=== PATIENT | male | born 1990 | race Caucasian/White ===

== ENCOUNTER 2025-02-07 19:30 | Emergency (ER) | payer OTHER ==
[2025-02-07 19:42] VITALS: BP 134/94; PULSE 121; RESP 20; TEMP 98.7; BMI 31.0
[2025-02-07] MEDS ORDERED: DIPHTH,PERTUSS(ACELL),TET 0.5 ML DISP.SYRIN IM ONE ×2 (21:17→21:27)
[2025-02-07] MEDS: DIPHTH,PERTUSS(ACELL),TET 0.5 ML DISP.SYRIN IM ONE (21:28)
== END 2025-02-07 21:45 | disposition home or self-care (01) ==
LOC: JER 19:30
PROC: 3E0234Z Introduction of Serum, Toxoid and Vaccine into Muscle, Percutaneous Approach (ICD-10-PCS; principal; 2025-02-07)
DX: R21 Rash and other nonspecific skin eruption (principal); Z23 Encounter for immunization
CPT/HCPCS: 90471; 90715; 99284-25

== ENCOUNTER 2025-03-03 20:15 | Inpatient (IN) | payer OTHER ==
[2025-03-03 20:20] VITALS: BMI 30.2
[2025-03-03 21:52] LABS: ABSOLUTE IMMATURE GRANULOCYTES 0.02 x10^3/uL (0.0-0.031); BASOPHILS # 0.09 x10^3/uL (0.01-0.08); EOSINOPHIL % 3.7 % (0.8-7.0); HEMATOCRIT 44.5 % (40.1-51.0); HEMOGLOBIN 14.9 g/dL (13.7-17.5); MCHC 33.5 g/dl (32.3-36.5); MEAN CELL VOLUME 98.7 fl (79.0-92.2); MEAN PLT VOLUME 9.7 fl (9.4-12.4); MONOCYTE # 1.06 x10^3/uL (0.30-0.82); PLATELET COUNT 217 x10^3/uL (163-337); RDW 11.9 % (12.0-15.6)
[2025-03-03 22:09] LABS: POTASSIUM 3.6 mmol/L (3.5-5.1)
[2025-03-03 22:20] LABS: ALBUMIN 3.7 g/dl (3.4-5.0); BILIRUBIN,TOTAL 0.4 mg/dL (0.2-1); BLOOD UREA NITROGEN 9.8 mg/dL (7-18); CALCIUM 9.9 mg/dL (8.5-10.1); CREATININE 1.2 mg/dL (0.55-1.3); MAGNESIUM 1.5 mg/dL (1.8-2.4); TOT PROT 8.3 g/dl (6.4-8.2)
[2025-03-03] MEDS ORDERED: VANCOMYCIN 1 GM PREMIX (F) 1 GM/200 ML BAG ONE (22:46)
[2025-03-03] MEDS ORDERED: PIPERACILLIN/TAZOB 4.5 GM 4.5 GM/100 ML BAG IVPB ONE (22:58)
[2025-03-03] MEDS: PIPERACILLIN/TAZOB 4.5 GM 4.5 GM in DEXTROSE 5%-WATER 100 ML IVPB ONE (23:06)
[2025-03-03 23:34] LABS: HIV INTERPRETATION NEGATIVE (NEGATIVE)
[2025-03-03 23:35] LABS: HCV DIAGNOSTIC IN-HOUSE W/RFLX NON-REACTIVE (NONREACTIVE)
[2025-03-03] MEDS ORDERED: chlordiazePOXIDE HCL 25 MG CAPSULE PO PRN (23:44)
[2025-03-03] MEDS ORDERED: LORazepam 2 MG/ML SDV VIAL IVPUSH PRN ×2 (23:50→23:52)
[2025-03-04] MEDS ORDERED: chlordiazePOXIDE HCL 25 MG CAPSULE ONE (00:14)
[2025-03-04] MEDS: chlordiazePOXIDE HCL 25 MG CAPSULE PO SCH (00:28)
[2025-03-04] MEDS: VANCOMYCIN 1,000 MG in DEXTROSE 5%-WATER - 250 ML IVPB ONE (00:46)
[2025-03-04] MEDS: MAGNESIUM 2GM/50ML STERILE WATER IVPB IVPB ONE (03:18)
[2025-03-04] MEDS ORDERED: THIAMINE HCL 200 MG/2 ML VIAL IVPB SCH (06:00)
[2025-03-04 08:09] LABS: HEMATOCRIT 38.6 % (40.1-51.0); MCHC 33.7 g/dl (32.3-36.5); PLATELET COUNT 177 x10^3/uL (163-337); RDW 11.9 % (12.0-15.6)
[2025-03-04 08:23] LABS: POTASSIUM 3.5 mmol/L (3.5-5.1)
[2025-03-04 08:28] LABS: CALCIUM 9.1 mg/dL (8.5-10.1)
[2025-03-04 08:29] LABS: ALBUMIN 3.2 g/dl (3.4-5.0); BLOOD UREA NITROGEN 8.3 mg/dL (7-18); MAGNESIUM 1.7 mg/dL (1.8-2.4)
[2025-03-04 08:32] LABS: PHOSPHOROUS 2.8 mg/dL (2.5-4.9)
[2025-03-04 08:34] LABS: BILIRUBIN,TOTAL 0.5 mg/dL (0.2-1)
[2025-03-04] MEDS: THIAMINE 100 MG TABLET PO SCH (09:08)
[2025-03-04] MEDS: DOXYCYCLINE HYCLATE 100 MG CAPSULE PO SCH (09:08)
[2025-03-04] MEDS: CEFTRIAXONE 1 G/50 ML PREMIX 50 ML IVPB SCH (09:08)
[2025-03-04] MEDS: FOLIC ACID 1 MG TABLET (FP) PO SCH (09:08)
[2025-03-04 10:29] LABS: ERYTHROCYTE SEDIMENTATION RATE 7 mm/hr (0-10)
[2025-03-04] MEDS ORDERED: LORazepam 1 MG TABLET PO PRN (12:12)
[2025-03-04] MEDS: LORATADINE 10 MG TABLET PO SCH (12:27)
[2025-03-04] MEDS: LORazepam 1 MG TABLET PO SCH (12:28)
[2025-03-05] MEDS ORDERED: chlordiazePOXIDE HCL 25 MG CAPSULE PO SCH (05:00)
[2025-03-05] MEDS: MAGNESIUM SULFATE IN WATER 2 GM/50 ML IVPB IVPB ONE (15:29)
[2025-03-05] MEDS: TRIAMCINOLONE ACET 0.1% CREAM 15 GM TUBE TP SCH ×2 (16:01→21:05)
[2025-03-05] MEDS: predniSONE 20 MG TABLET (UD) PO SCH (16:57)
[2025-03-05] MEDS: DICLOXACILLIN SODIUM 250 MG CAPSULE PO SCH (21:04)
[2025-03-05 21:14] VITALS: RESP 18
[2025-03-06] MEDS ORDERED: chlordiazePOXIDE HCL 10 MG CAPSULE PO PRN
[2025-03-06] MEDS: LORazepam 1 MG TABLET PO SCH (04:46)
[2025-03-06] MEDS ORDERED: chlordiazePOXIDE HCL 10 MG CAPSULE PO SCH (05:00)
[2025-03-06 08:55] LABS: HEMATOCRIT 38.2 % (40.1-51.0); HEMOGLOBIN 12.9 g/dL (13.7-17.5); MCHC 33.8 g/dl (32.3-36.5); MEAN CELL VOLUME 97.7 fl (79.0-92.2); MEAN PLT VOLUME 10.6 fl (9.4-12.4); PLATELET COUNT 187 x10^3/uL (163-337); RDW 11.3 % (12.0-15.6)
[2025-03-06 09:17] LABS: POTASSIUM 3.7 mmol/L (3.5-5.1)
[2025-03-06 09:51] LABS: ALBUMIN 3.2 g/dl (3.4-5.0); BLOOD UREA NITROGEN 17.4 mg/dL (7-18)
[2025-03-06 09:55] LABS: CREATININE 0.9 mg/dL (0.55-1.3); PHOSPHOROUS 4.9 mg/dL (2.5-4.9)
[2025-03-06 09:56] LABS: BILIRUBIN,TOTAL 0.6 mg/dL (0.2-1); TOT PROT 7.2 g/dl (6.4-8.2)
[2025-03-06 09:59] LABS: MAGNESIUM 1.9 mg/dL (1.8-2.4)
[2025-03-07] MEDS ORDERED: LORazepam 0.5 MG TABLET PO PRN
[2025-03-07] MEDS: LORazepam 0.5 MG TABLET PO SCH (04:43)
[2025-03-07] MEDS ORDERED: chlordiazePOXIDE HCL 10 MG CAPSULE PO SCH (05:00)
[2025-03-07 08:32] LABS: HEMATOCRIT 37.5 % (40.1-51.0); HEMOGLOBIN 12.8 g/dL (13.7-17.5); MCHC 34.1 g/dl (32.3-36.5); MEAN CELL VOLUME 97.9 fl (79.0-92.2); MEAN PLT VOLUME 10.9 fl (9.4-12.4); PLATELET COUNT 207 x10^3/uL (163-337); RDW 11.2 % (12.0-15.6)
[2025-03-07 08:52] LABS: POTASSIUM 3.3 mmol/L (3.5-5.1)
[2025-03-07 08:57] LABS: ALBUMIN 3.4 g/dl (3.4-5.0); BLOOD UREA NITROGEN 15.5 mg/dL (7-18); CALCIUM 8.7 mg/dL (8.5-10.1); MAGNESIUM 1.8 mg/dL (1.8-2.4)
[2025-03-07 09:01] LABS: BILIRUBIN,TOTAL 0.6 mg/dL (0.2-1); PHOSPHOROUS 4.3 mg/dL (2.5-4.9); TOT PROT 7.5 g/dl (6.4-8.2)
[2025-03-07] MEDS: POTASSIUM CHLORIDE ORAL LIQUID 20 MEQ/15 ML PO ONE (10:19)
[2025-03-07 10:45] VITALS: BP 127/85; PULSE 109; TEMP 97.2
[2025-03-08] MEDS ORDERED: LORazepam 0.5 MG TABLET PO ONE (05:00)
[2025-03-08] MEDS ORDERED: chlordiazePOXIDE HCL 10 MG CAPSULE PO ONE (05:00)
[2025-03-08 18:07] LABS: C-ANCA <1:20 titer (Neg:<1:20)
== END 2025-03-07 11:27 | disposition home or self-care (01) | DRG 383 ==
LOC: JERFT 20:15 → JERBED 22:22 → J6S 03-04 02:22
PROVIDERS: ADMIT Internal Medicine; ATTEND Internal Medicine
DX: L01.00 Impetigo, unspecified (principal); F10.230 Alcohol dependence with withdrawal, uncomplicated; L29.9 Pruritus, unspecified; E83.42 Hypomagnesemia; R79.89 Other specified abnormal findings of blood chemistry; D64.9 Anemia, unspecified
CPT/HCPCS: 36415; 80053; 82785; 83520; 83735; 84100; 85025; 85027; 85651; 86038; 86140; 86256; 86780; 86803; 87040; 87070; 87081; 87186; 87205; 87389; 93005; 93010; 99285-25

== ENCOUNTER 2025-04-04 19:30 | Inpatient (IN) | payer OTHER ==
[2025-04-04 19:45] VITALS: RESP 18; BMI 31.4
[2025-04-04 20:53] LABS: ABSOLUTE IMMATURE GRANULOCYTES 0.04 x10^3/uL (0.0-0.031); BASOPHILS # 0.04 x10^3/uL (0.01-0.08); HEMATOCRIT 34.6 % (40.1-51.0); MCHC 34.7 g/dl (32.3-36.5); MEAN CELL VOLUME 95.3 fl (79.0-92.2); MEAN PLT VOLUME 9.8 fl (9.4-12.4); MONOCYTE # 0.24 x10^3/uL (0.30-0.82); MONOCYTE % 2.6 % (5.3-12.2); PLATELET COUNT 275 x10^3/uL (163-337); RDW 11.9 % (12.0-15.6)
[2025-04-04 21:02] LABS: INR 1.15 (0.83-1.09); PROTHROMBIN TIME (PATIENT) 12.6 SEC (9.7-13.0)
[2025-04-04 21:05] LABS: ACTIVATED PTT 30.6 SECONDS (25.2-36.5)
[2025-04-04 21:14] LABS: POTASSIUM 4.7 mmol/L (3.5-5.1)
[2025-04-04 21:16] LABS: CALCIUM 9.1 mg/dL (8.5-10.1)
[2025-04-04 21:17] LABS: ALBUMIN 3.7 g/dl (3.4-5.0)
[2025-04-04 21:21] LABS: CREATININE 0.9 mg/dL (0.55-1.3)
[2025-04-04 21:22] LABS: BILIRUBIN,TOTAL 0.4 mg/dL (0.2-1); TOT PROT 8.4 g/dl (6.4-8.2)
[2025-04-04 21:38] LABS: ERYTHROCYTE SEDIMENTATION RATE 78 mm/hr (0-10)
[2025-04-04 22:11] LABS: HCV DIAGNOSTIC IN-HOUSE W/RFLX NON-REACTIVE (NONREACTIVE); HIV INTERPRETATION NEGATIVE (NEGATIVE)
[2025-04-04] MEDS ORDERED: PIPERACILLIN/TAZOB 3.375 GM 3.375 GM/50 ML BAG IVPB ONE (23:00)
[2025-04-04] MEDS: PIPERACILLIN/TAZOB 3.375 GM 3.375 GM in DEXTROSE 5%-WATER - 50 ML IVPB ONE (23:04)
[2025-04-04] MEDS ORDERED: VANCOMYCIN 1 GM PREMIX (F) 1 GM/200 ML BAG ONE (23:16)
[2025-04-04] MEDS: VANCOMYCIN 1,000 MG in DEXTROSE 5%-WATER - 250 ML IVPB ONE (23:22)
[2025-04-05] MEDS ORDERED: chlordiazePOXIDE HCL 25 MG CAPSULE ONE (00:58)
[2025-04-05] MEDS: chlordiazePOXIDE HCL 25 MG CAPSULE PO ONE (01:01)
[2025-04-05] MEDS: ACETAMINOPHEN 1000 MG/100 ML BAG IVPB PRN (05:14)
[2025-04-05 09:35] LABS: ABSOLUTE IMMATURE GRANULOCYTES 0.07 x10^3/uL (0.0-0.031); BASOPHILS # 0.09 x10^3/uL (0.01-0.08); EOSINOPHIL % 0.1 % (0.8-7.0); EOSINOPHILS # 0.01 x10^3/uL (0.04-0.54); HEMATOCRIT 31.7 % (40.1-51.0); HEMOGLOBIN 10.9 g/dL (13.7-17.5); MCHC 34.4 g/dl (32.3-36.5); MEAN CELL VOLUME 96.1 fl (79.0-92.2); MEAN PLT VOLUME 10.1 fl (9.4-12.4); MONOCYTE % 18.6 % (5.3-12.2); PLATELET COUNT 264 x10^3/uL (163-337); RDW 12.1 % (12.0-15.6)
[2025-04-05 10:46] LABS: POTASSIUM 3.8 mmol/L (3.5-5.1)
[2025-04-05 10:48] LABS: BLOOD UREA NITROGEN 13.7 mg/dL (7-18); CALCIUM 8.8 mg/dL (8.5-10.1); MAGNESIUM 1.7 mg/dL (1.8-2.4)
[2025-04-05 10:52] LABS: BILIRUBIN,TOTAL 0.7 mg/dL (0.2-1); PHOSPHOROUS 2.9 mg/dL (2.5-4.9)
[2025-04-05] MEDS: ENOXAPARIN NA (PORCINE) 40 MG/0.4 ML DISP.SYRIN SQ SCH (10:55)
[2025-04-05] MEDS: TRIAMCINOLONE ACET 0.1% CREAM 15 GM TUBE TP SCH (10:56)
[2025-04-05] MEDS: LORATADINE 10 MG TABLET PO SCH (10:56)
[2025-04-05 15:15] VITALS: BP 131/90; PULSE 91; TEMP 98.2
== END 2025-04-05 15:40 | disposition home or self-care (01) | DRG 816 ==
LOC: JER 19:30 → JERBED 04-05 00:20 → OBSVTOIN 04-05 02:06 → J6S 04-05 04:15
PROVIDERS: ADMIT Student in an Organized Health Care Education/Training Program; ATTEND Internal Medicine
DX: T63.481A Toxic effect of venom of other arthropod, accidental (unintentional), initial encounter (principal); L98.9 Disorder of the skin and subcutaneous tissue, unspecified; D64.9 Anemia, unspecified; R79.89 Other specified abnormal findings of blood chemistry; R21 Rash and other nonspecific skin eruption; Y92.89 Other specified places as the place of occurrence of the external cause; F10.90 Alcohol use, unspecified, uncomplicated
CPT/HCPCS: 36415; 80053; 83735; 84100; 85025; 85610; 85651; 85730; 86140; 86803; 86850; 86900; 86901; 87389; 93005; 93010; 93970-TC; 99285-25; G0378; J0131

== ENCOUNTER 2025-05-12 13:09 | Emergency (ER) | payer OTHER ==
[2025-05-12 13:33] VITALS: BMI 30.1
[2025-05-12] MEDS ORDERED: diazePAM CARPU-JECT 10 MG/2 ML DISP.SYRIN ONE (13:40)
[2025-05-12] MEDS: diazePAM CARPU-JECT 10 MG/2 ML DISP.SYRIN IVPUSH ONE (13:49)
[2025-05-12 14:14] LABS: ABSOLUTE IMMATURE GRANULOCYTES 0.02 x10^3/uL (0.0-0.031); EOSINOPHILS # 0.02 x10^3/uL (0.04-0.54); HEMOGLOBIN 13.1 g/dL (13.7-17.5)
[2025-05-12 14:16] LABS: BASOPHILS # 0.07 x10^3/uL (0.01-0.08); EOSINOPHIL % 0.3 % (0.8-7.0); HEMATOCRIT 39.5 % (40.1-51.0); MCHC 33.2 g/dl (32.3-36.5); MEAN CELL VOLUME 98.5 fl (79.0-92.2); MEAN PLT VOLUME 10.6 fl (9.4-12.4); MONOCYTE # 1.28 x10^3/uL (0.30-0.82); MONOCYTE % 16.1 % (5.3-12.2); PLATELET COUNT 124 x10^3/uL (163-337); RDW 13.6 % (12.0-15.6)
[2025-05-12 14:22] LABS: POTASSIUM 3.2 mmol/L (3.5-5.1)
[2025-05-12 14:25] LABS: ALBUMIN 4.1 g/dl (3.4-5.0); BLOOD UREA NITROGEN 9.8 mg/dL (7-18); CALCIUM 9.5 mg/dL (8.5-10.1); MAGNESIUM 1.4 mg/dL (1.8-2.4)
[2025-05-12 14:28] LABS: CREATININE 0.9 mg/dL (0.55-1.3); PHOSPHOROUS 3.4 mg/dL (2.5-4.9)
[2025-05-12 14:30] LABS: BILIRUBIN,TOTAL 2.1 mg/dL (0.2-1); TOT PROT 8.8 g/dl (6.4-8.2)
[2025-05-12 14:32] LABS: VENOUS BASE EXCESS 1.1 mmol/L (-2-2); VENOUS O2 SATURATION 58.2 % (70-80); VENOUS PCO2 44.2 mmHg (38-52); VENOUS PH 7.393 (7.310-7.410)
[2025-05-12] MEDS ORDERED: POTASSIUM CHLORIDE ORAL LIQUID 20 MEQ/15 ML ONE (14:34)
[2025-05-12] MEDS ORDERED: MAGNESIUM SULFATE IN WATER 2 GM/50 ML IVPB IVPB ONE (14:35)
[2025-05-12] MEDS: POTASSIUM CHLORIDE ORAL LIQUID 20 MEQ/15 ML PO ONE (14:40)
[2025-05-12] MEDS: MAGNESIUM SULFATE IN WATER 2 GM/50 ML IVPB IVPB ONE (14:40)
[2025-05-12] MEDS ORDERED: THIAMINE HCL 200 MG/2 ML VIAL ONE (14:42)
[2025-05-12] MEDS: THIAMINE HCL 200 MG/2 ML VIAL IVPB ONE ×2 (14:56→15:31)
[2025-05-12 15:19] LABS: HCV DIAGNOSTIC IN-HOUSE W/RFLX NON-REACTIVE (NONREACTIVE)
[2025-05-12] MEDS ORDERED: AMOX TR/POT CLAV 875MG/125MG TABLETS (FP) ONE (15:35)
[2025-05-12] MEDS: AMOX TR/POT CLAV 875MG/125MG TABLETS (FP) PO ONE (15:38)
[2025-05-12 16:27] LABS: HIV INTERPRETATION NEGATIVE (NEGATIVE)
[2025-05-12 16:44] VITALS: BP 141/94; PULSE 83; RESP 20; TEMP 98
[2025-05-12] MEDS ORDERED: LORazepam 2 MG TABLET PO SCH (17:00)
[2025-05-12] MEDS ORDERED: LORazepam 1 MG TABLET PO PRN (17:42)
[2025-05-12] MEDS ORDERED: LORazepam 1 MG TABLET PO SCH (18:04)
[2025-05-12] MEDS ORDERED: LORazepam 2 MG/ML SDV VIAL IVPUSH PRN (18:54)
[2025-05-12] MEDS ORDERED: FOLIC ACID 1 MG TABLET (FP) PO ONE (19:00)
[2025-05-12] MEDS ORDERED: LORATADINE 10 MG TABLET PO SCH (22:00)
[2025-05-13] MEDS ORDERED: ENOXAPARIN NA (PORCINE) 40 MG/0.4 ML DISP.SYRIN SQ SCH (10:00)
[2025-05-13] MEDS ORDERED: MINERAL OIL/PET HY-PHL TOPICAL OINTMENT 454 GM JAR TP SCH (10:00)
[2025-05-13] MEDS ORDERED: THIAMINE 100 MG TABLET PO SCH (10:00)
[2025-05-13] MEDS ORDERED: TRIAMCINOLONE ACET 0.1% CREAM 15 GM TUBE TP SCH (10:00)
[2025-05-14] MEDS ORDERED: LORazepam 1 MG TABLET PO SCH (05:00)
[2025-05-15] MEDS ORDERED: LORazepam 0.5 MG TABLET PO PRN
[2025-05-15] MEDS ORDERED: LORazepam 0.5 MG TABLET PO SCH (05:00)
[2025-05-16] MEDS ORDERED: LORazepam 0.5 MG TABLET PO ONE (05:00)
== END 2025-05-12 17:08 | disposition home or self-care (01) ==
LOC: JER 13:09
PROC: 3E033GC Introduction of Other Therapeutic Substance into Peripheral Vein, Percutaneous Approach (ICD-10-PCS; principal; 2025-05-12)
PROC: 3E033GC Introduction of Other Therapeutic Substance into Peripheral Vein, Percutaneous Approach (ICD-10-PCS; 2025-05-12)
PROC: 3E033GC Introduction of Other Therapeutic Substance into Peripheral Vein, Percutaneous Approach (ICD-10-PCS; 2025-05-12)
PROC: 3E03329 Introduction of Other Anti-infective into Peripheral Vein, Percutaneous Approach (ICD-10-PCS; 2025-05-12)
DX: F10.139 Alcohol abuse with withdrawal, unspecified (principal); Y90.9 Presence of alcohol in blood, level not specified
CPT/HCPCS: 36415; 80053; 82803; 83690; 83735; 84100; 84484; 85025; 86803; 87389; 93005; 93010; 99284-25

== ENCOUNTER 2025-05-12 17:30 | Inpatient (IN) | payer OTHER ==
[2025-05-12 18:01] VITALS: BMI 31.3
[2025-05-12] MEDS ORDERED: MAGNESIUM HYDROX 2400MG/30ML ORAL SUSPENSION 30 ML CUP PO PRN (21:59)
[2025-05-12] MEDS ORDERED: LOPERAMIDE HCL 2 MG CAPSULE PO PRN (21:59)
[2025-05-12] MEDS ORDERED: NALOXONE (NARCAN) HCL 4 MG/0.1 ML SPRAY NS PRN (21:59)
[2025-05-12] MEDS ORDERED: MAG HYDROX/AL HYDROX/SIMETH 30 ML UNIT-DOSE CUP PO PRN (21:59)
[2025-05-12] MEDS ORDERED: POLYETHYLENE GLYCOL (HEALTHYLAX) 3350 17 GM PACKET PO PRN (21:59)
[2025-05-12] MEDS ORDERED: IBUPROFEN 400 MG TABLET (FP) PO PRN (21:59)
[2025-05-12] MEDS ORDERED: DICYCLOMINE HCL 10 MG CAPSULE PO PRN (21:59)
[2025-05-12] MEDS ORDERED: BENZONATATE 200 MG CAPSULE PO PRN (21:59)
[2025-05-12] MEDS ORDERED: ONDANSETRON *ODT* 4 MG TABLET SL PRN (21:59)
[2025-05-12] MEDS ORDERED: BISMUTH SUBSALICYLATE 524 MG/30 ML PO PRN (21:59)
[2025-05-12] MEDS ORDERED: ACETAMINOPHEN 325 MG TABLET (FP) PO PRN (21:59)
[2025-05-12] MEDS ORDERED: guaiFENesin 600 MG TABLET.ER (FP) PO PRN (21:59)
[2025-05-12] MEDS ORDERED: BENZOCAINE/MENTHOL (CHLORASEPTIC ) LOZENGE MM PRN (21:59)
[2025-05-12] MEDS ORDERED: IBUPROFEN 600 MG TABLET (FP) PO PRN (21:59)
[2025-05-12] MEDS ORDERED: LORazepam 1 MG TABLET PO PRN (22:02)
[2025-05-12] MEDS: THIAMINE 100 MG TABLET PO SCH (23:20)
[2025-05-12] MEDS: MELATONIN 5 MG TABLETS PO SCH (23:20)
[2025-05-12] MEDS ORDERED: MELATONIN 5 MG TABLETS ONE (23:21)
[2025-05-12] MEDS: hydrOXYzine PAMOATE 25 MG CAPSULE (FP) PO PRN (23:44)
[2025-05-12] MEDS: levETIRAcetam 500 MG TABLET (FP) PO SCH (23:44)
[2025-05-12] MEDS: METHOCARBAMOL 500 MG TABLET PO PRN (23:45)
[2025-05-12] MEDS: LORazepam 2 MG TABLET PO SCH (23:45)
[2025-05-13 09:39] LABS: HEMATOCRIT 35.8 % (40.1-51.0); HEMOGLOBIN 12.1 g/dL (13.7-17.5); MCHC 33.8 g/dl (32.3-36.5); MEAN CELL VOLUME 97.8 fl (79.0-92.2); MEAN PLT VOLUME 11.3 fl (9.4-12.4); PLATELET COUNT 111 x10^3/uL (163-337); RDW 13.4 % (12.0-15.6)
[2025-05-13] MEDS: PRENATAL VITAMINS W/ FOLIC ACID TABLET (FP) PO SCH (10:31)
[2025-05-13] MEDS: TRIAMCINOLONE ACET 0.1% CREAM 15 GM TUBE TP SCH (13:22)
[2025-05-13] MEDS: NICOTINE POLACRILEX 2 MG GUM BUC PRN (17:29)
[2025-05-14] MEDS: LORazepam 1 MG TABLET PO SCH (05:54)
[2025-05-14 08:37] VITALS: BP 127/89; PULSE 72; RESP 16; TEMP 98.1
[2025-05-14] MEDS: POTASSIUM CHLORIDE ORAL LIQUID 20 MEQ/15 ML PO ONE (09:57)
[2025-05-15] MEDS ORDERED: LORazepam 0.5 MG TABLET PO PRN
[2025-05-15] MEDS ORDERED: LORazepam 0.5 MG TABLET PO SCH (05:00)
[2025-05-16] MEDS ORDERED: LORazepam 0.5 MG TABLET PO ONE (05:00)
== END 2025-05-14 10:38 | disposition home or self-care (01) | DRG 775 ==
LOC: YASAS 17:30 → Y3N 22:57
PROVIDERS: ADMIT Allergy & Immunology; ATTEND Allergy & Immunology
PROC: HZ2ZZZZ Detoxification Services for Substance Abuse Treatment (ICD-10-PCS; principal; 2025-05-12)
DX: F10.230 Alcohol dependence with withdrawal, uncomplicated (principal); F17.290 Nicotine dependence, other tobacco product, uncomplicated; L03.114 Cellulitis of left upper limb; L03.113 Cellulitis of right upper limb; L03.116 Cellulitis of left lower limb; L03.115 Cellulitis of right lower limb; Z86.69 Personal history of other diseases of the nervous system and sense organs; B95.8 Unspecified staphylococcus as the cause of diseases classified elsewhere
CPT/HCPCS: 36415; 80305; 80307; 85027; 86780; 93005; 93010

== ENCOUNTER 2025-07-04 16:22 | Inpatient (IN) | payer OTHER ==
[2025-07-04 16:55] VITALS: BMI 31.0
[2025-07-04] MEDS ORDERED: BENZONATATE 200 MG CAPSULE PO PRN (17:08)
[2025-07-04] MEDS ORDERED: ONDANSETRON *ODT* 4 MG TABLET SL PRN (17:08)
[2025-07-04] MEDS ORDERED: POLYETHYLENE GLYCOL (HEALTHYLAX) 3350 17 GM PACKET PO PRN (17:08)
[2025-07-04] MEDS ORDERED: guaiFENesin 600 MG TABLET.ER (FP) PO PRN (17:08)
[2025-07-04] MEDS ORDERED: ACETAMINOPHEN 325 MG TABLET (FP) PO PRN (17:08)
[2025-07-04] MEDS ORDERED: MAG HYDROX/AL HYDROX/SIMETH 30 ML UNIT-DOSE CUP PO PRN (17:08)
[2025-07-04] MEDS ORDERED: LOPERAMIDE HCL 2 MG CAPSULE PO PRN (17:08)
[2025-07-04] MEDS ORDERED: BISMUTH SUBSALICYLATE 524 MG/30 ML PO PRN (17:08)
[2025-07-04] MEDS ORDERED: IBUPROFEN 400 MG TABLET (FP) PO PRN (17:08)
[2025-07-04] MEDS ORDERED: DICYCLOMINE HCL 10 MG CAPSULE PO PRN (17:08)
[2025-07-04] MEDS ORDERED: BENZOCAINE/MENTHOL (CHLORASEPTIC ) LOZENGE MM PRN (17:08)
[2025-07-04] MEDS ORDERED: IBUPROFEN 600 MG TABLET (FP) PO PRN (17:08)
[2025-07-04] MEDS ORDERED: NICOTINE POLACRILEX 2 MG GUM BUC PRN (17:08)
[2025-07-04] MEDS ORDERED: MAGNESIUM HYDROX 2400MG/30ML ORAL SUSPENSION 30 ML CUP PO PRN (17:08)
[2025-07-04] MEDS ORDERED: NICOTINE POLACRILEX 2 MG LOZENGE BC PRN (17:08)
[2025-07-04] MEDS ORDERED: NALOXONE (NARCAN) HCL 4 MG/0.1 ML SPRAY NS PRN (17:08)
[2025-07-04] MEDS ORDERED: BACITRACIN 0.9 GM PACKET TP PRN (17:11)
[2025-07-04] MEDS: hydrOXYzine PAMOATE 25 MG CAPSULE (FP) PO PRN (22:12)
[2025-07-04] MEDS: THIAMINE 100 MG TABLET PO SCH (22:12)
[2025-07-04] MEDS: MELATONIN 5 MG TABLETS PO SCH (22:12)
[2025-07-04] MEDS: METHOCARBAMOL 500 MG TABLET PO PRN (22:12)
[2025-07-04] MEDS: levETIRAcetam 500 MG TABLET (FP) PO SCH (22:12)
[2025-07-04] MEDS: CHOLESTYRAMINE/NUTRASWEET 4 GM PACKET PO SCH (23:34)
[2025-07-05] MEDS: PRENATAL VITAMINS W/ FOLIC ACID TABLET (FP) PO SCH (10:19)
[2025-07-05 10:43] LABS: MEAN CELL VOLUME 99.5 fl (79.0-92.2)
[2025-07-05 10:45] LABS: IMMATURE PLATELET FRACTION # 5.10 x10^3/uL; MCHC 33.3 g/dl (32.3-36.5); MEAN PLT VOLUME 11.0 fl (9.4-12.4); RDW 12.3 % (12.0-15.6)
[2025-07-05 10:54] LABS: GLUCOSE,RANDOM 84 mg/dL (74-106); TOT PROT 7.8 g/dl (6.4-8.2)
[2025-07-05 10:55] LABS: CO2 26 mmol/L (21-32)
[2025-07-05 10:57] LABS: ALK PHOS 124 U/L (40-150)
[2025-07-05 11:00] LABS: CREATININE 0.66 mg/dL (0.55-1.3); SGOT/AST 197 U/L (5-34); SGPT/ALT 166 U/L (0-55)
[2025-07-05] MEDS: POTASSIUM CHLORIDE ORAL LIQUID 20 MEQ/15 ML PO ONE (12:08)
[2025-07-06 13:25] VITALS: BP 121/80; PULSE 108; RESP 19; TEMP 96.9
== END 2025-07-06 14:09 | disposition left against medical advice (07) | DRG 770 ==
LOC: YASAS 16:22 → Y3N 19:34
PROVIDERS: ADMIT Neuromusculoskeletal Medicine & OMM; ATTEND Allergy & Immunology
PROC: HZ2ZZZZ Detoxification Services for Substance Abuse Treatment (ICD-10-PCS; principal; 2025-07-04)
DX: F10.230 Alcohol dependence with withdrawal, uncomplicated (principal); F17.290 Nicotine dependence, other tobacco product, uncomplicated; E87.6 Hypokalemia; J45.20 Mild intermittent asthma, uncomplicated; R74.01 Elevation of levels of liver transaminase levels; Z86.69 Personal history of other diseases of the nervous system and sense organs
CPT/HCPCS: 36415; 80053; 80307; 84132; 85027; 86780

== ENCOUNTER 2025-09-21 14:22 | Inpatient (IN) | payer OTHER ==
[2025-09-21] MEDS ORDERED: diazePAM CARPU-JECT 10 MG/2 ML DISP.SYRIN ONE ×3 (14:30→17:24)
[2025-09-21] MEDS ORDERED: ONDANSETRON 4 MG/2 ML VIAL ONE (14:41)
[2025-09-21] MEDS ORDERED: PANTOPRAZOLE SODIUM 40 MG VIAL ONE (14:42)
[2025-09-21] MEDS: diazePAM CARPU-JECT 10 MG/2 ML DISP.SYRIN IVPUSH ONE ×3 (14:56→17:35)
[2025-09-21] MEDS: ONDANSETRON 4 MG/2 ML VIAL IVPB ONE (14:56)
[2025-09-21] MEDS: PANTOPRAZOLE SODIUM 40 MG VIAL IVPUSH ONE (14:56)
[2025-09-21 15:12] LABS: INR 1.11 (0.83-1.09); PROTHROMBIN TIME (PATIENT) 12.1 SEC (9.7-13.0)
[2025-09-21 15:15] LABS: ACTIVATED PTT 29.8 SECONDS (25.2-36.5)
[2025-09-21 15:26] LABS: ABSOLUTE IMMATURE GRANULOCYTES 0.05 x10^3/uL (0.0-0.031); BASOPHILS # 0.09 x10^3/uL (0.01-0.08); EOSINOPHIL % 0.4 % (0.8-7.0); EOSINOPHILS # 0.03 x10^3/uL (0.04-0.54); IMMATURE PLATELET FRACTION # 5.80 x10^3/uL; MCHC 34.5 g/dl (32.3-36.5); MEAN CELL VOLUME 97.2 fl (79.0-92.2); MEAN PLT VOLUME 10.5 fl (9.4-12.4); MONOCYTE # 0.73 x10^3/uL (0.30-0.82); MONOCYTE % 9.5 % (5.3-12.2); RDW 12.8 % (12.0-15.6)
[2025-09-21 15:30] LABS: GLUCOSE,RANDOM 140.0 mg/dL (74-106); TOT PROT 8.6 g/dl (6.4-8.2)
[2025-09-21 15:31] LABS: CO2 18.0 mmol/L (21-32)
[2025-09-21 15:35] LABS: SGOT/AST 339.0 U/L (5-34); SGPT/ALT 238.0 U/L (0-55)
[2025-09-21 15:36] LABS: CREATININE 0.67 mg/dL (0.55-1.3)
[2025-09-21] MEDS ORDERED: CEFTRIAXONE 1 GM/50 ML BAG ONE (15:44)
[2025-09-21] MEDS: CEFTRIAXONE 1 GM in DEXTROSE 5%-WATER - 100 ML IVPB ONE (15:50)
[2025-09-21 15:59] LABS: ALK PHOS 189.0 U/L (40-150)
[2025-09-21] MEDS ORDERED: PANTOPRAZOLE SODIUM 160 MG in SODIUM CHLORIDE 290 ML IVPB SCH (16:15)
[2025-09-21 16:36] LABS: LACTIC ACID 6.1 mmol/L (0.4-2.0)
[2025-09-21] MEDS: PANTOPRAZOLE SODIUM 160 MG in SODIUM CHLORIDE 290 ML IVPB SCH ×2 (17:19→17:38)
[2025-09-21] MEDS ORDERED: SODIUM CHLORIDE 1,000 ML IV SCH (17:45)
[2025-09-21] MEDS: THIAMINE HCL 200 MG/2 ML VIAL IVPB ONE (18:44)
[2025-09-21] MEDS: DEXTROSE 5%-0.45% SALINE 1,000 ML IV SCH (18:47)
[2025-09-21] MEDS: OCTREOTIDE ACETATE 200 MCG, OCTREOTIDE ACETATE 1,000 MCG in DEXTROSE 5%-WATER - 496 ML IVPB SCH (18:55)
[2025-09-21] MEDS ORDERED: THIAMINE HCL 200 MG/2 ML VIAL IVPB SCH ×2 (19:00→19:06)
[2025-09-21 19:02] LABS: HIV INTERPRETATION NEGATIVE (NEGATIVE)
[2025-09-21 19:04] LABS: HCV DIAGNOSTIC IN-HOUSE W/RFLX NON-REACTIVE (NONREACTIVE)
[2025-09-21] MEDS ORDERED: PHYTONADIONE 10 MG/1 ML AMP ONE (21:01)
[2025-09-21] MEDS ORDERED: THIAMINE HCL 200 MG/2 ML VIAL IVPB ONE (21:11)
[2025-09-21] MEDS: DEXTROSE 5%-NORMAL SALINE 1,000 ML IV SCH (21:29)
[2025-09-21] MEDS: PHYTONADIONE 10 MG/1 ML AMP IVPB ONE (21:30)
[2025-09-21] MEDS: FOLIC ACID 5 MG/1 ML SQ ONE (22:50)
[2025-09-21] MEDS: CHLORHEXIDINE GLUCONATE 4% CLEANSER FOR DECOLONIZATION TP SCH (22:51)
[2025-09-21] MEDS: MUPIROCIN 2% TOPICAL OINTMENT FOR DECOLONIZATION NS SCH (23:36)
[2025-09-22 07:36] LABS: ABSOLUTE IMMATURE GRANULOCYTES 0.02 x10^3/uL (0.0-0.031); BASOPHILS # 0.06 x10^3/uL (0.01-0.08); EOSINOPHIL % 0.2 % (0.8-7.0); EOSINOPHILS # 0.01 x10^3/uL (0.04-0.54); MCHC 33.2 g/dl (32.3-36.5); MEAN CELL VOLUME 97.1 fl (79.0-92.2); MEAN PLT VOLUME 11.9 fl (9.4-12.4); MONOCYTE # 1.02 x10^3/uL (0.30-0.82); MONOCYTE % 16.3 % (5.3-12.2); RDW 12.7 % (12.0-15.6)
[2025-09-22 07:50] LABS: GLUCOSE,RANDOM 153.0 mg/dL (74-106); TOT PROT 7.6 g/dl (6.4-8.2)
[2025-09-22 07:51] LABS: CO2 27.0 mmol/L (21-32)
[2025-09-22 07:54] LABS: ALK PHOS 146.0 U/L (40-150)
[2025-09-22 07:55] LABS: LDH 356.0 U/L (87-246)
[2025-09-22 07:56] LABS: CREATININE 0.67 mg/dL (0.55-1.3); SGOT/AST 187.0 U/L (5-34); SGPT/ALT 168.0 U/L (0-55)
[2025-09-22 08:46] LABS: COCAINE, UR NEGATIVE (NEGATIVE)
[2025-09-22 08:47] LABS: METHADONE, UR NEGATIVE (NEGATIVE); OPIATES, URI NEGATIVE (NEGATIVE); PHENCYCLIDINE,URINE NEGATIVE (NEGATIVE); URINE AMPHETAMINES NEGATIVE (NEGATIVE); URINE BARBITURATES POSITIVE (NEGATIVE); URINE BENZODIAZEPINES POSITIVE (NEGATIVE)
[2025-09-22] MEDS: MAGNESIUM SULFATE IN WATER 2 GM/50 ML IVPB IVPB ONE (08:54)
[2025-09-22] MEDS: THIAMINE HCL 200 MG/2 ML VIAL IVPB SCH (10:25)
[2025-09-22] MEDS: DEXMEDETOMIDINE PREMIX 400 MCG/100 ML BAG IVPB SCH (11:05)
[2025-09-22] MEDS: ONDANSETRON 4 MG/2 ML VIAL IVPUSH ONE (12:50)
[2025-09-23 13:22] VITALS: BMI 30.2
[2025-09-23] MEDS: DEXMEDETOMIDINE PREMIX 400 MCG/100 ML BAG IVPB SCH (14:10)
[2025-09-23] MEDS: diazePAM CARPU-JECT 10 MG/2 ML DISP.SYRIN IVPUSH STA (14:32)
[2025-09-23 14:37] LABS: GLUCOSE,RANDOM 167.0 mg/dL (74-106)
[2025-09-23 14:38] LABS: TOT PROT 7.1 g/dl (6.4-8.2)
[2025-09-23 14:39] LABS: CO2 26.0 mmol/L (21-32)
[2025-09-23 14:43] LABS: CREATININE 0.68 mg/dL (0.55-1.3); SGOT/AST 141.0 U/L (5-34); SGPT/ALT 123.0 U/L (0-55)
[2025-09-23 15:20] LABS: ALK PHOS 134.0 U/L (40-150)
[2025-09-24 06:02] VITALS: RESP 18
[2025-09-24] MEDS ORDERED: LORazepam 2 MG/ML SDV VIAL ONE (06:36)
[2025-09-24] MEDS: LORazepam 2 MG/ML SDV VIAL IVPUSH STA (06:40)
[2025-09-24 07:13] LABS: RDW 11.9 % (12.0-15.6)
[2025-09-24 07:15] LABS: IMMATURE PLATELET FRACTION # 9.60 x10^3/uL; MCHC 33.7 g/dl (32.3-36.5); MEAN CELL VOLUME 96.7 fl (79.0-92.2); MEAN PLT VOLUME 11.6 fl (9.4-12.4)
[2025-09-24 07:54] LABS: GLUCOSE,RANDOM 117.0 mg/dL (74-106); TOT PROT 7.2 g/dl (6.4-8.2)
[2025-09-24 07:55] LABS: CO2 26.0 mmol/L (21-32)
[2025-09-24 07:59] LABS: CREATININE 0.71 mg/dL (0.55-1.3); SGOT/AST 113.0 U/L (5-34); SGPT/ALT 113.0 U/L (0-55)
[2025-09-24 08:09] LABS: ALK PHOS 135.0 U/L (40-150)
[2025-09-24 08:15] LABS: INR 1.12 (0.83-1.09); PROTHROMBIN TIME (PATIENT) 12.3 SEC (9.7-13.0)
[2025-09-24 17:41] LABS: IRON SERUM 53.0 ug/dL (50-175)
[2025-09-24] MEDS: MAGNESIUM SULF 50% (8.12 MEQ/2 ML-1 GM VIAL) IVPB ONE (18:43)
[2025-09-24] MEDS: OCTREOTIDE ACETATE 200 MCG, OCTREOTIDE ACETATE 1,000 MCG in DEXTROSE 5%-WATER - 496 ML IVPB SCH (20:00)
[2025-09-24] MEDS: NICOTINE 14 MG/24 HOURS TOPICAL PATCH TD SCH (22:48)
[2025-09-25 08:58] LABS: ABSOLUTE IMMATURE GRANULOCYTES 0.03 x10^3/uL (0.0-0.031); BASOPHILS # 0.06 x10^3/uL (0.01-0.08)
[2025-09-25 09:00] LABS: EOSINOPHIL % 1.5 % (0.8-7.0); EOSINOPHILS # 0.10 x10^3/uL (0.04-0.54); IMMATURE PLATELET FRACTION # 11.20 x10^3/uL; MCHC 33.8 g/dl (32.3-36.5); MEAN CELL VOLUME 97.2 fl (79.0-92.2); MEAN PLT VOLUME 11.0 fl (9.4-12.4); MONOCYTE # 1.34 x10^3/uL (0.30-0.82); MONOCYTE % 20.1 % (5.3-12.2); RDW 12.2 % (12.0-15.6)
[2025-09-25 09:05] LABS: INR 1.14 (0.83-1.09); PROTHROMBIN TIME (PATIENT) 12.4 SEC (9.7-13.0)
[2025-09-25 09:42] LABS: GLUCOSE,RANDOM 101.0 mg/dL (74-106)
[2025-09-25 09:43] LABS: TOT PROT 7.9 g/dl (6.4-8.2)
[2025-09-25 09:44] LABS: CO2 27.0 mmol/L (21-32)
[2025-09-25 09:47] LABS: LDH 326.0 U/L (87-246)
[2025-09-25 09:48] LABS: CREATININE 0.86 mg/dL (0.55-1.3); SGOT/AST 94.0 U/L (5-34); SGPT/ALT 104.0 U/L (0-55)
[2025-09-25] MEDS ORDERED: NICOTINE 14 MG/24 HOURS TOPICAL PATCH TD SCH (10:00)
[2025-09-25] MEDS ORDERED: THIAMINE HCL 200 MG/2 ML VIAL IVPB SCH ×2 (10:00→14:00)
[2025-09-25 10:02] LABS: ALK PHOS 149.0 U/L (40-150)
[2025-09-25] MEDS: LORazepam 2 MG/ML SDV VIAL IVPUSH PRN (10:14)
[2025-09-25] MEDS: FOLIC ACID 1 MG TABLET (FP) PO SCH (10:14)
[2025-09-25] MEDS: PANTOPRAZOLE SODIUM 40 MG VIAL IVPUSH SCH (10:14)
[2025-09-25 11:58] VITALS: BP 124/100; PULSE 111; TEMP 99
[2025-09-27] MEDS ORDERED: THIAMINE HCL 200 MG/2 ML VIAL IVPB SCH ×3 (10:00)
== END 2025-09-25 14:45 | disposition left against medical advice (07) | DRG 770 ==
LOC: JER 14:22 → JERBED 17:08 → JICU 22:02 → J6S 09-24 17:57
PROVIDERS: ADMIT Internal Medicine; ATTEND Internal Medicine
DX: F10.231 Alcohol dependence with withdrawal delirium (principal); K92.0 Hematemesis; D69.6 Thrombocytopenia, unspecified; J45.909 Unspecified asthma, uncomplicated; K70.10 Alcoholic hepatitis without ascites; R56.9 Unspecified convulsions; D50.9 Iron deficiency anemia, unspecified; E86.0 Dehydration; R74.01 Elevation of levels of liver transaminase levels; E83.42 Hypomagnesemia; R21 Rash and other nonspecific skin eruption
CPT/HCPCS: 36415; 70450-TC; 71045-TC-FY; 76700-TC; 80053; 80307; 82140; 82272; 82607; 82728; 82746; 83010; 83540; 83550; 83605; 83615; 83690; 83735; 84100; 85025; 85027; 85610; 85730; 86705; 86803; 86850; 86900; 86901; 87340; 87389; 87517; 87637-QW; 93005; 93010; 99291